=== PATIENT | male | born 1955 | race Caucasian/White ===

== ENCOUNTER 2016-10-26 17:26 | Emergency (ER) | payer OTHER ==
[~2016-10-26] VITALS: Ht 180.3 cm; Wt 149.7 kg
[2016-10-26] MEDS ORDERED: PROMETHAZINE HCL 25 MG/ML 1ML ONE (17:33)
[2016-10-26] MEDS ORDERED: HYDROmorphone HCL 2 MG/ML VL ONE (17:33)
[2016-10-26] MEDS ORDERED: PROMETHAZINE HCL 25 MG/ML 1ML IV ONE ×2 (17:45)
[2016-10-26] MEDS ORDERED: HYDROmorphone HCL 2 MG/ML VL IV ONE ×3 (17:45→19:30)
[2016-10-26 18:07] LABS: Basophils # (auto) 0 uL; Basophils % (auto) 0.3 % (0.0-2.0); Eosinophils # (auto) 0.2 uL; Eosinophils % (auto) 1.5 % (0.0-7.0); Hematocrit 50.8 % (41.0-53.0); Hemoglobin 16.5 g/dL (13.5-17.5); Lymphocytes # (auto) 2.8 uL; Lymphocytes % (auto) 17.9 % (10.0-50.0); Mean Corpuscular Hgb Conc. 32.5 g/dL (32.0-36.0); Monocytes # (auto) 1.6 uL; Neutrophils # (auto) 11.1 uL; Neutrophils % (auto) 70.3 % (37.0-80.0); Platelet Count (auto) 218 10^3/uL (140-450); Red Cell Distribution Width 13.7 % (11.6-16.0); White Blood Cell 15.8 10^3/uL (4.4-10.8)
[2016-10-26 18:22] LABS: INR 1.09 (0.9-1.15); Prothrombin Time 11.2 sec (9.37-12.3)
[2016-10-26 18:26] LABS: Albumin 3.4 g/dL (3.4-5.0); BUN/Creatinine Ratio 14.8; Bilirubin, Total 0.8 mg/dL (0.2-1.0); Calcium 8.8 mg/dL (8.5-10.1); Potassium 3.5 mmol/L (3.5-5.1); Total Protein 7.3 g/dL (6.4-8.2)
[2016-10-26] MEDS ORDERED: IOHEXOL 300 MG/ML 100ML BOTTLE IJ ONE (18:54)
[2016-10-26] MEDS ORDERED: ONDANSETRON HCL 4 MG/2 ML VIAL IV ONE (19:30)
[2016-10-26] MEDS ORDERED: NICARDIPINE 25MG/250ML BAG KIT 250 ML IV SCH (19:45)
[2016-10-26 20:00] LABS: B-Type Natriuretic Peptide 113.47 pg/mL (0-100); Temperature: 22.5 C (20.0-25.0)
[2016-10-26] MEDS ORDERED: LORazepam 2MG/ML-1ML VIAL IV ONE ×2 (23:30)
[2016-10-26] MEDS ORDERED: SODIUM CHLORIDE 0.9% 1,000 ML IV ONE (23:30)
[2016-10-27] MEDS ORDERED: PROMETHAZINE HCL 25 MG/ML 1ML IV ONE (00:45)
[2016-10-27] MEDS ORDERED: HYDROmorphone HCL 2 MG/ML VL IV ONE (00:45)
[2016-10-27 03:27] VITALS: BP 135/65
== END 2016-10-27 04:00 | disposition short-term general hospital (02) ==
LOC: EDBD 17:26 → EDUNIT# 17:26 → ER 17:30
DX: I71.03 Dissection of thoracoabdominal aorta (principal); M25.512 Pain in left shoulder; M79.89 Other specified soft tissue disorders; R73.9 Hyperglycemia, unspecified; I10 Essential (primary) hypertension; F12.10 Cannabis abuse, uncomplicated; Z90.49 Acquired absence of other specified parts of digestive tract; E66.01 Morbid (severe) obesity due to excess calories; Z68.42 Body mass index [BMI] 45.0-49.9, adult
CPT/HCPCS: 36415; 71010; 71260; 74177; 80053; 83690; 83880; 84484; 85025; 85610; 85730; 86850; 86900; 86901; 93005; 96361; 96365; 96366; 96375; 96376; 99285; J1170; J2060; J2405; J2550; J7030; Q9967; 96374